=== PATIENT | female | born 1965 | race African-American/Black ===

== ENCOUNTER 2016-08-13 17:26 | Inpatient (IN) | payer MEDICAID ==
[~2016-08-13] VITALS: Ht 157.5 cm; Wt 98.0 kg
[~2016-08-13 17:26] MED LIST: AMLO10TA80 PO; ASPI-1160 PO; ATEN-42 PO; AZIT500T5 PO; BACL-141 PO; DIPH25CA83 PO; FURO-151 PO; GABA-529 PO; LISI40TA4 PO; METF500T4 PO; MONT10TA24 PO; NAPR-681 PO; POTA10CA42 PO
[2016-08-13] MEDS ORDERED: ASPIRIN 81MG TABLET PO STA (18:13)
[2016-08-13] MEDS ORDERED: NITROGLYCERIN 0.4MG TABLET SL SL PRN (18:15)
[2016-08-13 18:37] LABS: BASOPHILS % 1.2 % (0.0-2.0); EOSINOPHILS % 3.3 % (0.0-5.0); HEMATOCRIT. 37.1 % (36.0-48.0); HEMOGLOBIN. 12.3 g/dL (12.0-16.0); LYMPHOCYTES % 25.6 % (20.0-50.0); MEAN CORPUSCULAR HEMOGLOBIN 26.7 pg (28.0-32.0); MEAN CORPUSCULAR VOLUME 80.5 fL (81.0-99.0); MEAN PLATELET VOLUME 8.9 fl (7.4-10.4); MONOCYTES % 6.1 % (2.0-8.0); NEUTROPHILS % 63.8 % (40.0-76.0); PLATELET 166 x1000/uL (130-400); RED BLOOD CELL COUNT 4.61 mill/uL (4.2-5.4); RED CELL DISTRIBUTION WIDTH 15.3 % (11.6-14.6)
[2016-08-13 18:42] LABS: INR 1.1; PARTIAL THROMBOPLASTIN TIME 25.7 sec (24.0-34.0); PROTHROMBIN TIME 11.4 sec
[2016-08-13 18:51] LABS: CARBON DIOXIDE 33 mEq/L (21-32); CHLORIDE 107 mEq/L (98-107); TROPONIN I 0.03 ng/mL (0.00-0.04)
[2016-08-13] MEDS: KCL 20MEQ/100ML PREMIX 100 ML IV ONE ×2 (20:15→20:48)
[2016-08-13] MEDS ORDERED: POTASSIUM CHLORIDE 20MEQ TABLET SR PO ONE (21:00)
[2016-08-13 22:00] VITALS: BP 156/98
[2016-08-13] MEDS ORDERED: IPRATROPIUM/ALBUTEROL 0.5-3(2.5)MG/3ML NEB INH PRN (22:45)
[2016-08-13] MEDS ORDERED: CLONIDINE 0.1MG TABLET PO PRN (22:45)
[2016-08-13] MEDS ORDERED: DOCUSATE SODIUM 100MG CAPSULE PO PRN (22:45)
[2016-08-13] MEDS ORDERED: ACETAMINOPHEN 325MG TABLET PO PRN (22:45)
[2016-08-13] MEDS ORDERED: HYDROCODONE/ACETAMINOPHEN 5/325MG TABLET PO PRN (22:45)
[2016-08-13] MEDS ORDERED: ONDANSETRON HCL 4MG/2ML VIAL IV PRN (22:45)
[2016-08-13] MEDS ORDERED: ENOXAPARIN 40MG/0.4ML SYR SUBCUT SCH (22:45)
[2016-08-13] MEDS ORDERED: MAGNESIUM/ALUMINUM HYDROXIDE/SIMETHICONE 30ML UDC PO PRN (22:45)
[2016-08-13] MEDS ORDERED: MULT-1146 PO (23:15)
[2016-08-13] MEDS ORDERED: CHOL100026 PO (23:15)
[2016-08-13] MEDS ORDERED: DEXTROSE 50% WATER 50ML SYRINGE IV PRN (23:15)
[2016-08-14] VITALS: BP 135/77
[2016-08-14 00:37] LABS: CARBON DIOXIDE 31 mEq/L (21-32); CHLORIDE 105 mEq/L (98-107)
[2016-08-14 04:00] VITALS: BP 132/81
[2016-08-14 06:44] LABS: BASOPHILS % 1.3 % (0.0-2.0); EOSINOPHILS % 4.4 % (0.0-5.0); HEMATOCRIT. 38.5 % (36.0-48.0); HEMOGLOBIN. 12.9 g/dL (12.0-16.0); LYMPHOCYTES % 24.7 % (20.0-50.0); MEAN CORPUSCULAR HEMOGLOBIN 26.9 pg (28.0-32.0); MEAN CORPUSCULAR VOLUME 80.3 fL (81.0-99.0); MEAN PLATELET VOLUME 9.8 fl (7.4-10.4); MONOCYTES % 8.6 % (2.0-8.0); PLATELET 173 x1000/uL (130-400); RED BLOOD CELL COUNT 4.79 mill/uL (4.2-5.4); RED CELL DISTRIBUTION WIDTH 14.8 % (11.6-14.6)
[2016-08-14 07:04] LABS: CREATINE KINASE 364 IU/L (26-192); HDL CHOLESTEROL 47 mg/dL (40-59); LDL CHOLESTEROL 77 mg/dL (5-100)
[2016-08-14 07:10] LABS: CREATINE KINASE MB FRACTION 2.5 ng/mL (0.5-3.6); TROPONIN I < 0.02 ng/mL (0.00-0.04)
[2016-08-14 08:00] VITALS: BP 127/79
[2016-08-14] MEDS: BLOOD SUGAR DIAGNOSTIC STRIP TEST SCH ×4 (08:06→21:16)
[2016-08-14] MEDS ORDERED: MEDICATION NOT ON FORMULARY EA (Potassium Chloride 1 CAP) PO SCH (09:00)
[2016-08-14] MEDS ORDERED: FUROSEMIDE 40MG TABLET PO SCH (09:00)
[2016-08-14] MEDS ORDERED: MEDICATION NOT ON FORMULARY EA (Multivitamin (Multi Vitamin Daily) 1 EACH) PO SCH (09:00)
[2016-08-14] MEDS: ENOXAPARIN 30MG/0.3ML SYR SUBCUT SCH ×2 (09:28→21:16)
[2016-08-14] MEDS: POTASSIUM CHLORIDE 10MEQ TABLET SR PO SCH (09:29)
[2016-08-14] MEDS: LISINOPRIL 40MG TABLET PO SCH (09:29)
[2016-08-14] MEDS: AMLODIPINE 10MG TABLET PO SCH (09:29)
[2016-08-14] MEDS: GABAPENTIN 100MG CAPSULE PO SCH ×3 (09:30→18:29)
[2016-08-14] MEDS: ATENOLOL 25MG TABLET PO SCH (09:30)
[2016-08-14] MEDS: CHOLECALCIFEROL (D3) 1000 UNIT TABLET PO SCH (09:30)
[2016-08-14] MEDS: INSULIN LISPRO 100 UNITS/ML SUBCUT SCH ×4 (09:32→21:23)
[2016-08-14] MEDS: MULTIVITAMINS,THER W-MINERALS TABLET PO SCH (09:35)
[2016-08-14] MEDS: ASPIRIN 81MG TABLET PO SCH (09:36)
[2016-08-14 12:00] VITALS: BP 134/92
[2016-08-14] MEDS ORDERED: REGADENOSON 0.4 MG/5 ML IV ONE (13:00)
[2016-08-14] MEDS ORDERED: POTASSIUM CHLORIDE 20MEQ/PACKET PO NR (13:00)
[2016-08-14] MEDS: MONTELUKAST SODIUM 10MG TABLET PO SCH (13:38)
[2016-08-14 16:00] VITALS: BP 139/87
[2016-08-14] MEDS ORDERED: DIPHENHYDRAMINE 25MG CAPSULE PO SCH (17:00)
[2016-08-14 20:00] VITALS: BP 134/78
[2016-08-15] VITALS: BP 132/79
[2016-08-15 04:00] VITALS: BP 126/78
[2016-08-15 06:09] LABS: CARBON DIOXIDE 30 mEq/L (21-32); CHLORIDE 103 mEq/L (98-107); HDL CHOLESTEROL 51 mg/dL (40-59)
[2016-08-15 06:12] LABS: LDL CHOLESTEROL 84 mg/dL (5-100); TROPONIN I < 0.02 ng/mL (0.00-0.04)
[2016-08-15 06:59] LABS: BASOPHILS % 1.1 % (0.0-2.0); EOSINOPHILS % 4.8 % (0.0-5.0); HEMATOCRIT. 39.8 % (36.0-48.0); LYMPHOCYTES % 29.4 % (20.0-50.0); MEAN CORPUSCULAR HEMOGLOBIN 26.1 pg (28.0-32.0); MEAN CORPUSCULAR VOLUME 80.2 fL (81.0-99.0); MEAN PLATELET VOLUME 9.8 fl (7.4-10.4); MONOCYTES % 7.6 % (2.0-8.0); NEUTROPHILS % 57.1 % (40.0-76.0); PLATELET 175 x1000/uL (130-400); RED BLOOD CELL COUNT 4.96 mill/uL (4.2-5.4); RED CELL DISTRIBUTION WIDTH 15.1 % (11.6-14.6)
[2016-08-15] MEDS: BLOOD SUGAR DIAGNOSTIC STRIP TEST SCH (07:17)
[2016-08-15 08:00] VITALS: BP 160/100
[2016-08-15] MEDS ORDERED: REGADENOSON 0.4 MG/5 ML IV ONE (09:58)
[2016-08-15] MEDS: MONTELUKAST SODIUM 10MG TABLET PO SCH (11:35)
[2016-08-15] MEDS: LISINOPRIL 40MG TABLET PO SCH (11:35)
[2016-08-15] MEDS: ENOXAPARIN 30MG/0.3ML SYR SUBCUT SCH (11:35)
[2016-08-15] MEDS: POTASSIUM CHLORIDE 10MEQ TABLET SR PO SCH (11:36)
[2016-08-15] MEDS: AMLODIPINE 10MG TABLET PO SCH (11:36)
[2016-08-15] MEDS: ATENOLOL 25MG TABLET PO SCH (11:36)
[2016-08-15] MEDS: CHOLECALCIFEROL (D3) 1000 UNIT TABLET PO SCH (11:37)
[2016-08-15] MEDS: GABAPENTIN 100MG CAPSULE PO SCH (11:37)
[2016-08-15] MEDS: MULTIVITAMINS,THER W-MINERALS TABLET PO SCH (11:37)
[2016-08-15] MEDS: ASPIRIN 81MG TABLET PO SCH (11:37)
[2016-08-15] MEDS: INSULIN LISPRO 100 UNITS/ML SUBCUT SCH (11:39)
[2016-08-15 12:00] VITALS: BP 145/85
[2016-08-15 12:40] VITALS: BP 145/85
== END 2016-08-15 13:10 | disposition home or self-care (01) | DRG 203 ==
LOC: ER 17:39 → 7WST 20:41 → EDBEDREQ 20:42 → ENRESERV 21:02
PROVIDERS: ADMIT Internal Medicine; ATTEND Internal Medicine
DX: M94.0 Chondrocostal junction syndrome [Tietze] (principal); I50.43 Acute on chronic combined systolic (congestive) and diastolic (congestive) heart failure; E11.42 Type 2 diabetes mellitus with diabetic polyneuropathy; J44.9 Chronic obstructive pulmonary disease, unspecified; I11.0 Hypertensive heart disease with heart failure; E87.6 Hypokalemia; I44.0 Atrioventricular block, first degree; M19.90 Unspecified osteoarthritis, unspecified site; E66.9 Obesity, unspecified; Z68.39 Body mass index [BMI] 39.0-39.9, adult; Z82.49 Family history of ischemic heart disease and other diseases of the circulatory system; Z79.82 Long term (current) use of aspirin; Z88.0 Allergy status to penicillin; Z79.2 Long term (current) use of antibiotics; Z79.84 Long term (current) use of oral hypoglycemic drugs; Z87.891 Personal history of nicotine dependence
CPT/HCPCS: 36415; 71010; 78452; 80048; 80053; 80061; 82550; 82553; 82962; 83735; 83880; 84443; 84484; 85025; 85379; 85610; 85730; 93005; 93017; 93970; 99285; A9500; J1650; J1815; J2785; J3480; Q0163

== ENCOUNTER 2016-11-04 08:12 | Inpatient (IN) | payer MEDICAID ==
[~2016-11-04] VITALS: Ht 157.5 cm; Wt 113.4 kg
[~2016-11-04 08:12] MED LIST changes: +CHOL100044 PO; -METF500T4 PO; +MULT-1146 PO; -NAPR-681 PO
[2016-11-04] MEDS ORDERED: NITROGLYCERIN OINT 1GM/INCH UDPKT TD STA (08:26)
[2016-11-04] MEDS ORDERED: IPRATROPIUM BROMIDE (0.02%) 0.5MG/2.5ML NEB HHN STA (08:26)
[2016-11-04] MEDS ORDERED: ALBUTEROL (0.083%) 2.5MG/3ML NEB HHN STA (08:26)
[2016-11-04] MEDS ORDERED: MAGNESIUM 2 G PREMIX 50 ML IV STA (08:26)
[2016-11-04] MEDS ORDERED: FUROSEMIDE 40MG/4ML VIAL IV STA (08:26)
[2016-11-04] MEDS ORDERED: METHYLPREDNISOLONE SOD SUCC 125 MG/2 ML VIAL IV STA (08:26)
[2016-11-04 09:05] LABS: HEMATOCRIT. 36.7 % (36.0-48.0); HEMOGLOBIN. 12.1 g/dL (12.0-16.0); MEAN CORPUSCULAR HEMOGLOBIN 26.8 pg (28.0-32.0); MEAN CORPUSCULAR VOLUME 81.1 fL (81.0-99.0); MEAN PLATELET VOLUME 9.2 fl (7.4-10.4); PLATELET 157 x1000/uL (130-400); RED BLOOD CELL COUNT 4.53 mill/uL (4.2-5.4); RED CELL DISTRIBUTION WIDTH 16.3 % (11.6-14.6)
[2016-11-04 09:12] LABS: HCG SCREEN NEGATIVE; PARTIAL THROMBOPLASTIN TIME 22.6 sec (23.4-31.0); PROTHROMBIN TIME 10.7 sec (9.4-11.6)
[2016-11-04 09:23] LABS: CARBON DIOXIDE 27 mEq/L (21-32); CHLORIDE 107 mEq/L (98-107); TROPONIN I 0.04 ng/mL (0.00-0.04)
[2016-11-04 09:27] LABS: PLATELET ESTIMATE NORMAL
[2016-11-04] MEDS ORDERED: LEVOFLOXACIN 500MG PREMIX 100 ML IV ONE (09:45)
[2016-11-04 10:30] VITALS: BP 172/88
[2016-11-04] MEDS ORDERED: IPRATROPIUM/ALBUTEROL 0.5-3(2.5)MG/3ML NEB HHN PRN (11:00)
[2016-11-04] MEDS ORDERED: POTASSIUM CHLORIDE 20MEQ TABLET SR PO NR (11:15)
[2016-11-04] MEDS ORDERED: CLONIDINE 0.2MG TABLET PO PRN (11:45)
[2016-11-04] MEDS ORDERED: AMLODIPINE 2.5MG TABLET PO SCH (11:45)
[2016-11-04 12:18] VITALS: BP 172/88
[2016-11-04] MEDS: METHYLPREDNISOLONE SOD SUCC 40 MG/ML VIAL IV SCH ×2 (12:22→17:33)
[2016-11-04] MEDS: ENOXAPARIN 30MG/0.3ML SYR SUBCUT SCH ×2 (12:33→21:27)
[2016-11-04] MEDS ORDERED: ACETAMINOPHEN 650MG/20.3ML UDC PO PRN (14:15)
[2016-11-04] MEDS: IPRATROPIUM/ALBUTEROL 0.5-3(2.5)MG/3ML NEB HHN SCH ×2 (14:21→20:02)
[2016-11-04] MEDS: ACETAMINOPHEN 325MG TABLET PO PRN (14:42)
[2016-11-04] MEDS: GUAIFENESIN 200MG/10ML SUGAR FREE UDC PO PRN ×2 (14:43→21:41)
[2016-11-04] MEDS: CLONIDINE 0.2MG TABLET PO PRN (14:50)
[2016-11-04 16:00] VITALS: BP 142/70
[2016-11-04] MEDS ORDERED: DEXTROSE 50% WATER 50ML SYRINGE IV PRN (16:15)
[2016-11-04 17:12] LABS: *AMPHETAMINES SCREEN URINE NEGATIVE (NEGATIVE); *BARBITURATES SCREEN URINE NEGATIVE (NEGATIVE); *BENZODIAZEPINES SCREEN URINE NEGATIVE (NEGATIVE); *COCAINE SCREEN URINE NEGATIVE (NEGATIVE); CANNABINOID URINE SCREEN NEGATIVE (NEGATIVE); METHADONE URINE SCREEN NEGATIVE (NEGATIVE); OPIATES URINE SCREEN NEGATIVE (NEGATIVE); PHENCYCLIDINE URINE SCREEN NEGATIVE (NEGATIVE)
[2016-11-04] MEDS: GABAPENTIN 100MG CAPSULE PO SCH (17:32)
[2016-11-04] MEDS: DIPHENHYDRAMINE 25MG CAPSULE PO SCH (17:32)
[2016-11-04] MEDS: BACLOFEN 10MG TABLET PO SCH (17:33)
[2016-11-04] MEDS: INSULIN LISPRO 100 UNITS/ML SUBCUT SCH ×2 (17:42→21:37)
[2016-11-04] MEDS: BLOOD SUGAR DIAGNOSTIC STRIP TEST SCH ×2 (17:42→20:59)
[2016-11-04 19:29] LABS: CREATINE KINASE MB FRACTION 3.5 ng/mL (0.5-3.6); TROPONIN I 0.07 ng/mL (0.00-0.04)
[2016-11-04 20:00] VITALS: BP 155/72
[2016-11-04] MEDS: FUROSEMIDE 40MG/4ML VIAL IVP SCH (21:26)
[2016-11-04] MEDS: AMLODIPINE 5MG TABLET PO SCH (21:27)
[2016-11-05] VITALS (7 sets, daily range): BP systolic 146–173; BP diastolic 76–92
[2016-11-05] MEDS: CLONIDINE 0.2MG TABLET PO PRN ×2 (01:20→06:10)
[2016-11-05] MEDS: METHYLPREDNISOLONE SOD SUCC 40 MG/ML VIAL IV SCH ×3 (01:24→22:00)
[2016-11-05] MEDS: IPRATROPIUM/ALBUTEROL 0.5-3(2.5)MG/3ML NEB HHN SCH ×4 (02:21→20:34)
[2016-11-05 03:24] LABS: HEMATOCRIT. 37.3 % (36.0-48.0); MEAN CORPUSCULAR HEMOGLOBIN 26.4 pg (28.0-32.0); MEAN CORPUSCULAR VOLUME 81.9 fL (81.0-99.0); PLATELET 184 x1000/uL (130-400); RED BLOOD CELL COUNT 4.55 mill/uL (4.2-5.4); RED CELL DISTRIBUTION WIDTH 15.6 % (11.6-14.6)
[2016-11-05 03:32] LABS: CREATINE KINASE MB FRACTION 4.9 ng/mL (0.5-3.6); TROPONIN I 0.06 ng/mL (0.00-0.04)
[2016-11-05 03:37] LABS: CARBON DIOXIDE 29 mEq/L (21-32); CHLORIDE 99 mEq/L (98-107); HDL CHOLESTEROL 76 mg/dL (40-59); LDL CHOLESTEROL 102 mg/dL (5-100)
[2016-11-05] MEDS: BLOOD SUGAR DIAGNOSTIC STRIP TEST SCH ×4 (06:09→21:00)
[2016-11-05] MEDS: GUAIFENESIN 200MG/10ML SUGAR FREE UDC PO PRN (06:28)
[2016-11-05] MEDS ORDERED: POTASSIUM CHLORIDE 10MEQ TABLET SR PO SCH (09:00)
[2016-11-05] MEDS: LISINOPRIL 40MG TABLET PO SCH (09:51)
[2016-11-05] MEDS: BACLOFEN 10MG TABLET PO SCH ×2 (09:51→18:22)
[2016-11-05] MEDS: ENOXAPARIN 30MG/0.3ML SYR SUBCUT SCH ×2 (09:51→21:59)
[2016-11-05] MEDS: GABAPENTIN 100MG CAPSULE PO SCH ×3 (09:51→18:22)
[2016-11-05] MEDS: ASPIRIN 81MG TABLET PO SCH (09:51)
[2016-11-05] MEDS: CHOLECALCIFEROL (D3) 1000 UNIT TABLET PO SCH (09:52)
[2016-11-05] MEDS: ATENOLOL 25MG TABLET PO SCH (09:52)
[2016-11-05] MEDS: FUROSEMIDE 40MG/4ML VIAL IVP SCH ×2 (09:52→22:00)
[2016-11-05] MEDS: MULTIVITAMINS,THER W-MINERALS TABLET PO SCH (09:52)
[2016-11-05] MEDS: AMLODIPINE 5MG TABLET PO SCH ×2 (09:52→22:00)
[2016-11-05] MEDS: INSULIN LISPRO 100 UNITS/ML SUBCUT SCH ×4 (09:54→22:06)
[2016-11-05] MEDS ORDERED: POTASSIUM CHLORIDE 20MEQ TABLET SR PO NR (10:00)
[2016-11-05 11:51] LABS: T4 FREE 1.22 ng/dL (0.76-1.46)
[2016-11-05] MEDS: GUAIFENESIN/CODEINE 100-10MG/5ML UDC PO PRN ×2 (12:44→22:00)
[2016-11-05] MEDS: HYDRALAZINE HCL 50MG TABLET PO SCH ×2 (12:49→21:59)
[2016-11-05 14:19] LABS: PLATELET ESTIMATE NORMAL
[2016-11-05] MEDS: POTASSIUM CHLORIDE 20MEQ TABLET SR PO SCH (18:21)
[2016-11-05] MEDS: MONTELUKAST SODIUM 10MG TABLET PO SCH (18:22)
[2016-11-05] MEDS: DIPHENHYDRAMINE 25MG CAPSULE PO SCH (18:22)
[2016-11-05] MEDS: ACETAMINOPHEN 325MG TABLET PO PRN (22:00)
[2016-11-06] VITALS: BP 153/89
[2016-11-06] MEDS: IPRATROPIUM/ALBUTEROL 0.5-3(2.5)MG/3ML NEB HHN SCH ×3 (02:01→20:13)
[2016-11-06] MEDS: HYDRALAZINE HCL 50MG TABLET PO SCH ×3 (06:00→22:15)
[2016-11-06] MEDS: BLOOD SUGAR DIAGNOSTIC STRIP TEST SCH ×4 (07:20→21:00)
[2016-11-06 07:45] LABS: CARBON DIOXIDE 28 mEq/L (21-32); TROPONIN I 0.03 ng/mL (0.00-0.04)
[2016-11-06 08:00] VITALS: BP 142/75
[2016-11-06] MEDS: FUROSEMIDE 40MG/4ML VIAL IVP SCH ×2 (08:31→22:14)
[2016-11-06] MEDS: MULTIVITAMINS,THER W-MINERALS TABLET PO SCH (08:31)
[2016-11-06] MEDS: CHOLECALCIFEROL (D3) 1000 UNIT TABLET PO SCH (08:31)
[2016-11-06] MEDS: GABAPENTIN 100MG CAPSULE PO SCH ×3 (08:31→17:19)
[2016-11-06] MEDS: METHYLPREDNISOLONE SOD SUCC 40 MG/ML VIAL IV SCH (08:31)
[2016-11-06] MEDS: POTASSIUM CHLORIDE 20MEQ TABLET SR PO SCH ×2 (08:32→17:19)
[2016-11-06] MEDS: LISINOPRIL 40MG TABLET PO SCH (08:32)
[2016-11-06] MEDS: ATENOLOL 25MG TABLET PO SCH (08:33)
[2016-11-06] MEDS: ASPIRIN 81MG TABLET PO SCH (08:33)
[2016-11-06] MEDS: AMLODIPINE 5MG TABLET PO SCH ×2 (08:33→22:14)
[2016-11-06] MEDS: BACLOFEN 10MG TABLET PO SCH ×2 (08:34→17:19)
[2016-11-06] MEDS: ENOXAPARIN 30MG/0.3ML SYR SUBCUT SCH ×2 (08:35→22:14)
[2016-11-06] MEDS: INSULIN LISPRO 100 UNITS/ML SUBCUT SCH ×4 (08:38→22:18)
[2016-11-06 08:41] LABS: CHLORIDE 97 mEq/L (98-107)
[2016-11-06] MEDS: GUAIFENESIN/CODEINE 100-10MG/5ML UDC PO PRN ×2 (09:00→22:15)
[2016-11-06 12:00] VITALS: BP 140/75
[2016-11-06] MEDS ORDERED: REGADENOSON 0.4 MG/5 ML IV NR (15:15)
[2016-11-06 16:00] VITALS: BP 136/74
[2016-11-06] MEDS: DIPHENHYDRAMINE 25MG CAPSULE PO SCH (17:00)
[2016-11-06] MEDS: MONTELUKAST SODIUM 10MG TABLET PO SCH (17:19)
[2016-11-06 20:00] VITALS: BP 134/68
[2016-11-07] VITALS: BP 126/75
[2016-11-07] MEDS: IPRATROPIUM/ALBUTEROL 0.5-3(2.5)MG/3ML NEB HHN SCH ×3 (02:01→15:21)
[2016-11-07 04:00] VITALS: BP 147/78
[2016-11-07] MEDS: HYDRALAZINE HCL 50MG TABLET PO SCH (06:00)
[2016-11-07 06:52] LABS: BASOPHILS % 0.5 % (0.0-2.0); EOSINOPHILS % 0.4 % (0.0-5.0); HEMATOCRIT. 38.9 % (36.0-48.0); HEMOGLOBIN. 12.7 g/dL (12.0-16.0); LYMPHOCYTES % 12.7 % (20.0-50.0); MEAN CORPUSCULAR HEMOGLOBIN 26.5 pg (28.0-32.0); MEAN PLATELET VOLUME 10.7 fl (7.4-10.4); MONOCYTES % 5.3 % (2.0-8.0); NEUTROPHILS % 81.1 % (40.0-76.0); PLATELET 195 x1000/uL (130-400)
[2016-11-07] MEDS: BLOOD SUGAR DIAGNOSTIC STRIP TEST SCH (07:44)
[2016-11-07 08:00] VITALS: BP 124/82
[2016-11-07 08:11] LABS: CARBON DIOXIDE 30 mEq/L (21-32); CHLORIDE 98 mEq/L (98-107)
[2016-11-07] MEDS ORDERED: PREDNISONE 20MG TABLET PO SCH (09:00)
[2016-11-07] MEDS ORDERED: LORAZEPAM 0.5MG TABLET PO NR (10:00)
[2016-11-07 12:00] VITALS: BP 156/83
[2016-11-07] MEDS ORDERED: CLONIDINE 0.1MG TABLET PO PRN (12:20)
[2016-11-07 16:00] VITALS: BP 170/90
[2016-11-07 16:40] VITALS: BP 156/85
== END 2016-11-07 16:44 | disposition home or self-care (01) | DRG 140 ==
LOC: ER 09:00 → 6WST 09:34 → EDBEDREQ 09:39 → ENRESERV 09:43
PROVIDERS: ADMIT Internal Medicine; ATTEND Internal Medicine
DX: J44.1 Chronic obstructive pulmonary disease with (acute) exacerbation (principal); J96.00 Acute respiratory failure, unspecified whether with hypoxia or hypercapnia; I50.33 Acute on chronic diastolic (congestive) heart failure; I27.2 Other secondary pulmonary hypertension; E44.0 Moderate protein-calorie malnutrition; I24.9 Acute ischemic heart disease, unspecified; E11.42 Type 2 diabetes mellitus with diabetic polyneuropathy; J45.901 Unspecified asthma with (acute) exacerbation; E11.9 Type 2 diabetes mellitus without complications; D72.829 Elevated white blood cell count, unspecified; I16.9 Hypertensive crisis, unspecified; E78.00 Pure hypercholesterolemia, unspecified; E87.6 Hypokalemia; F41.9 Anxiety disorder, unspecified; I11.0 Hypertensive heart disease with heart failure; E66.01 Morbid (severe) obesity due to excess calories; Z87.891 Personal history of nicotine dependence; Z88.0 Allergy status to penicillin; Z79.82 Long term (current) use of aspirin; Z79.899 Other long term (current) drug therapy; Z68.42 Body mass index [BMI] 45.0-49.9, adult
CPT/HCPCS: 36415; 71010; 78452; 78582; 80053; 80061; 80305; 82550; 82553; 82962; 83690; 83735; 83880; 84439; 84443; 84481; 84484; 84703; 85025; 85379; 85610; 85730; 93005; 93306; 93970; 94640; 94644; 96365; 96375; 97162; 97165; 99291; A9500; A9558; C1893; J1650; J1815; J1940; J1956; J2785; J2920; J2930; J3475; J7611; J7620; Q0163

== ENCOUNTER 2017-01-02 03:16 | Emergency (ER) | payer MEDICAID ==
[~2017-01-02] VITALS: Ht 165.1 cm; Wt 100.0 kg
[2017-01-02] MEDS ORDERED: ASPIRIN 81MG TABLET PO ONE (03:45)
[2017-01-02] MEDS ORDERED: NITROGLYCERIN 0.4MG TABLET SL SL PRN (03:45)
[2017-01-02 04:00] LABS: BASOPHILS % 1.6 % (0.0-2.0); EOSINOPHILS % 7.8 % (0.0-5.0); HEMATOCRIT. 40.1 % (36.0-48.0); HEMOGLOBIN. 13.5 g/dL (12.0-16.0); LYMPHOCYTES % 26.8 % (20.0-50.0); MEAN CORPUSCULAR HEMOGLOBIN 26.9 pg (28.0-32.0); MEAN CORPUSCULAR VOLUME 80.1 fL (81.0-99.0); MEAN PLATELET VOLUME 8.7 fl (7.4-10.4); MONOCYTES % 9.1 % (2.0-8.0); NEUTROPHILS % 54.7 % (40.0-76.0); PLATELET 171 x1000/uL (130-400)
[2017-01-02 04:04] LABS: PROTHROMBIN TIME 10.4 sec (9.4-11.6)
[2017-01-02 04:14] LABS: CARBON DIOXIDE 30 mEq/L (21-32); CHLORIDE 106 mEq/L (98-107); TROPONIN I 0.03 ng/mL (0.00-0.04)
[2017-01-02 07:25] VITALS: BP 144/69
== END 2017-01-02 08:20 | disposition left against medical advice (07) ==
LOC: ER 03:16
DX: R07.9 Chest pain, unspecified (principal); I11.0 Hypertensive heart disease with heart failure; I50.9 Heart failure, unspecified; E11.9 Type 2 diabetes mellitus without complications; Z79.82 Long term (current) use of aspirin; Z88.0 Allergy status to penicillin
CPT/HCPCS: 36415; 71010; 80053; 81025; 83880; 84484; 85025; 85610; 93005; 99285

== ENCOUNTER 2017-02-08 00:31 | Emergency (ER) | payer MEDICAID ==
[~2017-02-08] VITALS: Ht 152.4 cm; Wt 90.0 kg
[2017-02-08] MEDS ORDERED: IPRATROPIUM BROMIDE (0.02%) 0.5MG/2.5ML NEB HHN STA (01:25)
[2017-02-08] MEDS ORDERED: PREDNISONE 20MG TABLET PO STA (01:25)
[2017-02-08] MEDS ORDERED: ALBUTEROL (0.083%) 2.5MG/3ML NEB HHN STA (01:25)
[2017-02-08] MEDS ORDERED: ACETAMINOPHEN 500MG TABLET PO ONE (01:30)
[2017-02-08 02:00] VITALS: BP 159/89
== END 2017-02-08 04:00 | disposition home or self-care (01) ==
LOC: ER 00:35
DX: J18.9 Pneumonia, unspecified organism (principal); J45.909 Unspecified asthma, uncomplicated; Z76.5 Malingerer [conscious simulation]; I50.9 Heart failure, unspecified; I11.0 Hypertensive heart disease with heart failure; E11.9 Type 2 diabetes mellitus without complications; Z79.82 Long term (current) use of aspirin; Z88.0 Allergy status to penicillin
CPT/HCPCS: 71010; 94640; 99283; J7512; J7611; Z7610

== ENCOUNTER 2017-03-09 11:48 | Emergency (ER) | payer MEDICAID ==
[~2017-03-09] VITALS: Ht 157.5 cm; Wt 113.0 kg
[2017-03-09 11:59] VITALS: BP 192/111
== END 2017-03-09 22:09 | disposition left against medical advice (07) ==
LOC: ER 13:05
DX: J45.909 Unspecified asthma, uncomplicated (principal); Z53.21 Procedure and treatment not carried out due to patient leaving prior to being seen by health care provider

== ENCOUNTER 2018-08-17 12:55 | Emergency (ER) | payer MEDICAID ==
[~2018-08-17] VITALS: Ht 170.2 cm; Wt 109.0 kg
[~2018-08-17 12:55] MED LIST changes: -AZIT500T5 PO; +GUAI5SYR3 GT
[2018-08-17 14:31] LABS: CLARITY URINE CLEAR (CLEAR); COLOR URINE YELLOW (YELLOW); KETONES URINE NEGATIVE (NEGATIVE); LEUKOCYTE ESTERASE URINE NEGATIVE (NEGATIVE); NITRITE URINE NEGATIVE (NEGATIVE); OCCULT BLOOD URINE NEGATIVE (NEGATIVE); PROTEIN URINE 2+ (NEGATIVE); SPECIFIC GRAVITY URINE 1.013 (1.005-1.030); UROBILINOGEN URINE 0.2 E.U./dL (0.2-1.0)
[2018-08-17] MEDS ORDERED: KETOROLAC 15MG/ML VIAL IV ONE (14:45)
[2018-08-17 15:17] LABS: CHLORIDE 108 mEq/L (98-107)
[2018-08-17 16:53] LABS: HEMATOCRIT. 38.9 % (36.0-48.0); MEAN CORPUSCULAR HEMOGLOBIN 27.7 pg (28.0-32.0); MEAN CORPUSCULAR VOLUME 82.8 fL (81.0-99.0); MEAN PLATELET VOLUME 9.1 fl (7.4-10.4); PLATELET 174 x1000/uL (130-400); RED BLOOD CELL COUNT 4.69 mill/uL (4.2-5.4); RED CELL DISTRIBUTION WIDTH 16.1 % (11.6-14.6)
[2018-08-17 18:00] LABS: PLATELET ESTIMATE NORMAL
[2018-08-17] MEDS ORDERED: POTASSIUM CHLORIDE 20MEQ TABLET SR PO SCH (18:00)
[2018-08-17 18:22] VITALS: BP 147/69
== END 2018-08-17 18:22 | disposition home or self-care (01) ==
LOC: ER 12:55
DX: J18.9 Pneumonia, unspecified organism (principal); I11.0 Hypertensive heart disease with heart failure; I50.9 Heart failure, unspecified; E11.9 Type 2 diabetes mellitus without complications; J44.9 Chronic obstructive pulmonary disease, unspecified; Z88.0 Allergy status to penicillin; Z79.899 Other long term (current) drug therapy
CPT/HCPCS: 36415; 71045; 80053; 81003; 81025; 83880; 84484; 85025; 93005; 96374; 99284; J1885

== ENCOUNTER 2019-02-13 07:29 | Emergency (ER) | payer MEDICAID ==
[~2019-02-13] VITALS: Ht 157.5 cm; Wt 91.0 kg
[2019-02-13] MEDS ORDERED: IPRATROPIUM BROMIDE (0.02%) 0.5MG/2.5ML NEB HHN STA (07:44)
[2019-02-13] MEDS ORDERED: ALBUTEROL (0.083%) 2.5MG/3ML NEB HHN STA (07:44)
[2019-02-13 08:50] LABS: BASOPHILS % 1.3 % (0.0-2.0); EOSINOPHILS % 4.8 % (0.0-5.0); HEMATOCRIT. 38.8 % (36.0-48.0); LYMPHOCYTES % 17.3 % (20.0-50.0); MEAN CORPUSCULAR HEMOGLOBIN 27.2 pg (28.0-32.0); MEAN CORPUSCULAR VOLUME 81.5 fL (81.0-99.0); MONOCYTES % 8.1 % (2.0-8.0); NEUTROPHILS % 68.5 % (40.0-76.0); PLATELET 161 x1000/uL (130-400); RED BLOOD CELL COUNT 4.76 mill/uL (4.2-5.4); RED CELL DISTRIBUTION WIDTH 15.3 % (11.6-14.6)
[2019-02-13 08:54] LABS: CHLORIDE 104 mEq/L (98-107)
[2019-02-13 09:05] LABS: *AMPHETAMINES SCREEN URINE NEGATIVE (NEGATIVE); *BARBITURATES SCREEN URINE NEGATIVE (NEGATIVE)
[2019-02-13 09:06] LABS: *BENZODIAZEPINES SCREEN URINE NEGATIVE (NEGATIVE); *COCAINE SCREEN URINE NEGATIVE (NEGATIVE); METHADONE URINE SCREEN NEGATIVE (NEGATIVE); OPIATES URINE SCREEN NEGATIVE (NEGATIVE); PHENCYCLIDINE URINE SCREEN NEGATIVE (NEGATIVE)
[2019-02-13] MEDS ORDERED: POTASSIUM CHLORIDE 20MEQ TABLET SR PO ONE (09:15)
[2019-02-13] MEDS ORDERED: KCL 10MEQ/50ML PREMIX 50 ML IV ONE (09:15)
[2019-02-13 09:17] LABS: CANNABINOID URINE SCREEN NEGATIVE (NEGATIVE)
[2019-02-13 11:15] VITALS: BP 175/95
== END 2019-02-13 11:48 | disposition left against medical advice (07) ==
LOC: ER 07:29
DX: I11.0 Hypertensive heart disease with heart failure (principal); I50.9 Heart failure, unspecified; J45.909 Unspecified asthma, uncomplicated; E11.9 Type 2 diabetes mellitus without complications; Z79.82 Long term (current) use of aspirin; Z79.899 Other long term (current) drug therapy; Z88.0 Allergy status to penicillin; E87.6 Hypokalemia
CPT/HCPCS: 36415; 71045; 80053; 80305; 83880; 84484; 85025; 93005; 94640; 99284; J3480; J7611; Z7610

== ENCOUNTER 2020-06-20 10:31 | Emergency (ER) | payer MEDICAID ==
[~2020-06-20] VITALS: Ht 157.5 cm; Wt 102.0 kg
[~2020-06-20 10:31] MED LIST changes: +LISI40TA13 PO; -LISI40TA4 PO; -MONT10TA24 PO; +MONT10TA32 PO
[2020-06-20 10:40] VITALS: BP 207/94
[2020-06-20 12:38] LABS: CLARITY URINE CLEAR (CLEAR); COLOR URINE YELLOW (YELLOW); KETONES URINE NEGATIVE (NEGATIVE); LEUKOCYTE ESTERASE URINE NEGATIVE (NEGATIVE); NITRITE URINE NEGATIVE (NEGATIVE); OCCULT BLOOD URINE NEGATIVE (NEGATIVE); PH URINE 6.5 (4.5-8.0); PROTEIN URINE NEGATIVE (NEGATIVE); SPECIFIC GRAVITY URINE 1.026 (1.005-1.030); UROBILINOGEN URINE 0.2 E.U./dL (0.2-1.0)
== END 2020-06-20 13:10 | disposition home or self-care (01) ==
LOC: ER 10:31
DX: N89.8 Other specified noninflammatory disorders of vagina (principal); I10 Essential (primary) hypertension; E11.9 Type 2 diabetes mellitus without complications; J45.909 Unspecified asthma, uncomplicated; Z79.82 Long term (current) use of aspirin; Z79.899 Other long term (current) drug therapy
CPT/HCPCS: 81003; 87210; 99283

== ENCOUNTER 2020-10-22 06:09 | Emergency (ER) | payer MEDICAID ==
[~2020-10-22] VITALS: Ht 157.5 cm; Wt 109.0 kg
[2020-10-22] MEDS ORDERED: IBUP-2028 MT (09:48)
[2020-10-22] MEDS ORDERED: CLIN300C12 MT (09:52)
[2020-10-22] MEDS ORDERED: IBUPROFEN 400MG TABLET PO ONE (10:00)
[2020-10-22 10:25] VITALS: BP 142/73
== END 2020-10-22 10:28 | disposition home or self-care (01) ==
LOC: ER 08:56
DX: L03.213 Periorbital cellulitis (principal); H00.012 Hordeolum externum right lower eyelid; J45.909 Unspecified asthma, uncomplicated; I11.0 Hypertensive heart disease with heart failure; I50.9 Heart failure, unspecified; E11.9 Type 2 diabetes mellitus without complications; Z79.899 Other long term (current) drug therapy; Z79.82 Long term (current) use of aspirin; Z79.51 Long term (current) use of inhaled steroids; Z88.0 Allergy status to penicillin
CPT/HCPCS: 99283

== ENCOUNTER 2020-11-06 14:05 | Emergency (ER) | payer MEDICAID ==
[~2020-11-06] VITALS: Ht 157.5 cm; Wt 87.0 kg
[~2020-11-06 14:05] MED LIST changes: +CLIN300C12 MT; +IBUP-2028 MT
[2020-11-06] MEDS ORDERED: ATENOLOL 25MG TABLET PO ONE (16:30)
[2020-11-06] MEDS ORDERED: AMLODIPINE 10MG TABLET PO ONE (16:30)
[2020-11-06 17:30] LABS: BASOPHILS % 0.9 % (0.0-2.0); EOSINOPHILS % 1.5 % (0.0-5.0); HEMATOCRIT. 40.4 % (36.0-48.0); HEMOGLOBIN. 13.2 g/dL (12.0-16.0); LYMPHOCYTES % 8.4 % (20.0-50.0); MEAN CORPUSCULAR HEMOGLOBIN 27.1 pg (28.0-32.0); MEAN CORPUSCULAR VOLUME 82.8 fL (81.0-99.0); MEAN PLATELET VOLUME 9.2 fl (7.4-10.4); MONOCYTES % 4.4 % (2.0-8.0); NEUTROPHILS % 84.8 % (40.0-76.0); PLATELET 189 x1000/uL (130-400); RED BLOOD CELL COUNT 4.88 mill/uL (4.2-5.4); RED CELL DISTRIBUTION WIDTH 14.8 % (11.6-14.6)
[2020-11-06 17:38] LABS: CHLORIDE 102 mEq/L (98-107)
[2020-11-06] MEDS ORDERED: INSULIN REGULAR (HUMULIN R) 300UNITS/3ML VIAL IV STA (18:12)
[2020-11-06] MEDS ORDERED: FUROSEMIDE 40MG/4ML VIAL IVP ONE (18:15)
[2020-11-06] MEDS ORDERED: FURO-152 MT (20:48)
[2020-11-06] MEDS ORDERED: ATEN-42 MT (20:48)
[2020-11-06] MEDS ORDERED: AMLO10TA80 MT (20:48)
[2020-11-06 21:01] VITALS: BP 158/80
== END 2020-11-06 21:07 | disposition home or self-care (01) ==
LOC: ER 14:31
DX: I11.0 Hypertensive heart disease with heart failure (principal); I50.9 Heart failure, unspecified; E11.65 Type 2 diabetes mellitus with hyperglycemia; J45.909 Unspecified asthma, uncomplicated; I10 Essential (primary) hypertension; Z79.899 Other long term (current) drug therapy; Z88.0 Allergy status to penicillin
CPT/HCPCS: 36415; 71045; 80053; 83880; 84484; 85025; 93005; 96374; 96375; 99285; J1815; J1940

== ENCOUNTER 2021-01-04 14:56 | Emergency (ER) | payer MEDICAID, OTHER ==
[~2021-01-04] VITALS: Ht 157.5 cm; Wt 87.0 kg
[~2021-01-04 14:56] MED LIST changes: +AMLO10TA80 MT; +ATEN-42 MT; +FURO-152 MT
[2021-01-04 15:08] VITALS: BP 193/105
== END 2021-01-04 21:12 | disposition left against medical advice (07) ==
LOC: ER 14:56
DX: Z53.21 Procedure and treatment not carried out due to patient leaving prior to being seen by health care provider (principal); R06.02 Shortness of breath; M79.605 Pain in left leg; M79.89 Other specified soft tissue disorders
CPT/HCPCS: 93005

== ENCOUNTER 2021-02-09 08:26 | Emergency (ER) | payer OTHER, MEDICAID ==
[~2021-02-09] VITALS: Ht 157.5 cm; Wt 87.0 kg
[2021-02-09] MEDS ORDERED: MORPHINE SULFATE 4 MG/ML CPJ (NOT FOR IM USE) IV STA (09:09)
[2021-02-09] MEDS: ALBUTEROL (0.083%) 2.5MG/3ML NEB HHN SCH ×3 (09:35→10:37)
[2021-02-09 10:41] LABS: BASOPHILS % 1.4 % (0.0-2.0); EOSINOPHILS % 4.8 % (0.0-5.0); HEMATOCRIT. 38.9 % (36.0-48.0); HEMOGLOBIN. 12.7 g/dL (12.0-16.0); LYMPHOCYTES % 12.8 % (20.0-50.0); MEAN CORPUSCULAR HEMOGLOBIN 27.2 pg (28.0-32.0); MEAN CORPUSCULAR VOLUME 83.2 fL (81.0-99.0); MEAN PLATELET VOLUME 9.5 fl (7.4-10.4); MONOCYTES % 9.2 % (2.0-8.0); NEUTROPHILS % 71.8 % (40.0-76.0); PLATELET 121 x1000/uL (130-400); RED BLOOD CELL COUNT 4.67 mill/uL (4.2-5.4); RED CELL DISTRIBUTION WIDTH 15.1 % (11.6-14.6)
[2021-02-09 10:45] LABS: CHLORIDE 104 mEq/L (98-107)
[2021-02-09] MEDS ORDERED: ACET-2708 MT (11:38)
[2021-02-09 11:50] VITALS: BP 168/85
[2021-02-10] MEDS ORDERED: ALBU6.7H9 INH (07:04)
[2021-02-10] MEDS ORDERED: METF-414 MT (07:04)
== END 2021-02-09 11:55 | disposition home or self-care (01) ==
LOC: ER 08:26
DX: B34.9 Viral infection, unspecified (principal); I11.0 Hypertensive heart disease with heart failure; E78.00 Pure hypercholesterolemia, unspecified; E11.9 Type 2 diabetes mellitus without complications; I10 Essential (primary) hypertension; J45.909 Unspecified asthma, uncomplicated; E66.01 Morbid (severe) obesity due to excess calories; Z68.35 Body mass index [BMI] 35.0-35.9, adult; Z79.84 Long term (current) use of oral hypoglycemic drugs; Z88.0 Allergy status to penicillin; Z79.82 Long term (current) use of aspirin
CPT/HCPCS: 36415; 71045; 80053; 82962; 83880; 84484; 85025; 93005; 94640; 94660; 96374; 99285; J2270; Z7610

== ENCOUNTER 2021-02-09 15:26 | Inpatient (IN) | payer MEDICAID, OTHER ==
[~2021-02-09] VITALS: Ht 157.5 cm; Wt 99.3 kg
[~2021-02-09 15:26] MED LIST changes: +ACET-2708 MT
[2021-02-09] MEDS ORDERED: NITROGLYCERIN OINT 1GM/INCH UDPKT TD ONE (16:15)
[2021-02-09] MEDS ORDERED: METHYLPREDNISOLONE SOD SUCC 125 MG/2 ML VIAL IV STA (16:15)
[2021-02-09] MEDS ORDERED: ALBUTEROL (0.083%) 2.5MG/3ML NEB HHN STA (16:15)
[2021-02-09] MEDS ORDERED: IPRATROPIUM BROMIDE (0.02%) 0.5MG/2.5ML NEB HHN STA (16:15)
[2021-02-09] MEDS ORDERED: FUROSEMIDE 40MG/4ML VIAL IVP ONE (17:30)
[2021-02-09 18:13] LABS: HEMATOCRIT. 42.9 % (36.0-48.0); HEMOGLOBIN. 13.8 g/dL (12.0-16.0); MEAN CORPUSCULAR HEMOGLOBIN 26.5 pg (28.0-32.0); MEAN CORPUSCULAR VOLUME 82.6 fL (81.0-99.0); MEAN PLATELET VOLUME 8.9 fl (7.4-10.4); PLATELET 160 x1000/uL (130-400); RED BLOOD CELL COUNT 5.19 mill/uL (4.2-5.4); RED CELL DISTRIBUTION WIDTH 15.2 % (11.6-14.6)
[2021-02-09 18:18] LABS: CHLORIDE 104 mEq/L (98-107)
[2021-02-09 18:35] LABS: PLATELET ESTIMATE NORMAL
[2021-02-09] MEDS ORDERED: ASPIRIN 325MG TABLET PO ONE (18:45)
[2021-02-09] MEDS ORDERED: POTASSIUM CHLORIDE 20MEQ TABLET SR PO SCH (18:45)
[2021-02-09] MEDS ORDERED: HYDROCODONE/ACETAMINOPHEN 5/325MG TABLET PO PRN (22:45)
[2021-02-09] MEDS ORDERED: ONDANSETRON HCL 4MG/2ML INJ IV PRN (22:45)
[2021-02-09] MEDS ORDERED: MAGNESIUM/ALUMINUM HYDROXIDE/SIMETHICONE 30ML UDC PO PRN (22:45)
[2021-02-09] MEDS ORDERED: CLONIDINE 0.1MG TABLET PO PRN (22:45)
[2021-02-09] MEDS ORDERED: GUAIFENESIN 200MG/10ML SUGAR FREE UDC PO PRN (22:45)
[2021-02-09] MEDS ORDERED: HYDRALAZINE 20MG/ML VIAL IV PRN (22:45)
[2021-02-09] MEDS: BUDESONIDE 0.5MG/2ML NEB HHN SCH (23:23)
[2021-02-10 02:02] LABS: CHLORIDE 103 mEq/L (98-107)
[2021-02-10] MEDS ORDERED: DEXTROSE 50% WATER 50ML SYRINGE IV PRN (03:15)
[2021-02-10] MEDS ORDERED: INSULIN LISPRO 100 UNITS/ML SUBCUT NR (03:15)
[2021-02-10] MEDS: INSULIN LISPRO (HIGH DOSE) 100 UNITS/ML SUBCUT SCH ×5 (03:30→21:30)
[2021-02-10 04:09] LABS: CLARITY URINE CLEAR (CLEAR); COLOR URINE YELLOW (YELLOW); KETONES URINE TRACE (NEGATIVE); LEUKOCYTE ESTERASE URINE NEGATIVE (NEGATIVE); NITRITE URINE NEGATIVE (NEGATIVE); OCCULT BLOOD URINE NEGATIVE (NEGATIVE); PH URINE 5.5 (4.5-8.0); PROTEIN URINE NEGATIVE (NEGATIVE); SPECIFIC GRAVITY URINE 1.029 (1.005-1.030); UROBILINOGEN URINE 0.2 E.U./dL (0.2-1.0)
[2021-02-10 04:19] LABS: *AMPHETAMINES SCREEN URINE NEGATIVE (NEGATIVE)
[2021-02-10 04:20] LABS: *BARBITURATES SCREEN URINE NEGATIVE (NEGATIVE); *BENZODIAZEPINES SCREEN URINE NEGATIVE (NEGATIVE); *COCAINE SCREEN URINE NEGATIVE (NEGATIVE); METHADONE URINE SCREEN NEGATIVE (NEGATIVE); OPIATES URINE SCREEN NEGATIVE (NEGATIVE); PHENCYCLIDINE URINE SCREEN NEGATIVE (NEGATIVE)
[2021-02-10 04:21] LABS: CANNABINOID URINE SCREEN NEGATIVE (NEGATIVE)
[2021-02-10] MEDS: BLOOD SUGAR DIAGNOSTIC STRIP TEST SCH ×5 (04:43→21:28)
[2021-02-10 05:13] LABS: HEMATOCRIT. 39.5 % (36.0-48.0); HEMOGLOBIN. 12.6 g/dL (12.0-16.0); MEAN CORPUSCULAR HEMOGLOBIN 26.7 pg (28.0-32.0); MEAN CORPUSCULAR VOLUME 83.9 fL (81.0-99.0); MEAN PLATELET VOLUME 9.8 fl (7.4-10.4); PLATELET 145 x1000/uL (130-400); RED BLOOD CELL COUNT 4.71 mill/uL (4.2-5.4)
[2021-02-10 05:30] LABS: LDL CHOLESTEROL 86 mg/dL (5-100)
[2021-02-10 05:31] LABS: BETA HYDROXYBUTYRATE 0.4 mMol/L (0.0-0.3); CREATINE KINASE 259 IU/L (26-192); HDL CHOLESTEROL 62 mg/dL (40-59)
[2021-02-10 05:32] LABS: CREATINE KINASE MB FRACTION < 1.0 ng/mL (0.5-3.6)
[2021-02-10 06:50] LABS: PLATELET ESTIMATE NORMAL
[2021-02-10] MEDS ORDERED: METF-414 MT (07:04)
[2021-02-10] MEDS ORDERED: ALBU6.7H9 INH (07:04)
[2021-02-10] MEDS: ACETAMINOPHEN 325MG TABLET PO PRN (07:10)
[2021-02-10 07:43] VITALS: BP 161/86
[2021-02-10 08:00] VITALS: BP 116/82
[2021-02-10] MEDS ORDERED: INSULIN LISPRO 100 UNITS/ML SUBCUT SCH ×2 (08:00→10:15)
[2021-02-10] MEDS: FUROSEMIDE 40MG/4ML VIAL IV SCH ×2 (08:55→17:21)
[2021-02-10] MEDS ORDERED: ENOXAPARIN 40MG/0.4ML SYR SUBCUT SCH (09:00)
[2021-02-10] MEDS: BUDESONIDE 0.5MG/2ML NEB HHN SCH ×2 (09:25→20:28)
[2021-02-10] MEDS: IPRATROPIUM/ALBUTEROL 0.5-3(2.5)MG/3ML NEB NEB PRN (09:25)
[2021-02-10 12:00] VITALS: BP 156/85
[2021-02-10] MEDS ORDERED: INSULIN GLARGINE UD 100 UNITS/ML SYR SUBCUT SCH ×2 (12:00→22:00)
[2021-02-10] MEDS ORDERED: POTASSIUM CHLORIDE 20MEQ/PACKET PO NR ×2 (14:15→20:00)
[2021-02-10] MEDS ORDERED: NALOXONE HCL 0.4MG/ML VIAL IV PRN (14:15)
[2021-02-10] MEDS: NICOTINE 21MG PATCH TD SCH (15:45)
[2021-02-10 16:00] VITALS: BP 166/93
[2021-02-10] MEDS: LOSARTAN POTASSIUM 100 MG TABLET PO SCH (16:13)
[2021-02-10 16:35] LABS: CREATINE KINASE 343 IU/L (26-192); CREATINE KINASE MB FRACTION 2.4 ng/mL (0.5-3.6)
[2021-02-10] MEDS: ATENOLOL 25MG TABLET PO SCH (17:53)
[2021-02-10 20:00] VITALS: BP 147/87
[2021-02-10] MEDS: INSULIN GLARGINE UD 100 UNITS/ML SYR SUBCUT SCH (21:30)
[2021-02-11] VITALS: BP 151/84
[2021-02-11 04:00] VITALS: BP 136/79
[2021-02-11] MEDS: IPRATROPIUM/ALBUTEROL 0.5-3(2.5)MG/3ML NEB NEB PRN ×2 (05:32→07:33)
[2021-02-11] MEDS: BLOOD SUGAR DIAGNOSTIC STRIP TEST SCH ×2 (06:13→11:43)
[2021-02-11] MEDS: INSULIN LISPRO (HIGH DOSE) 100 UNITS/ML SUBCUT SCH ×2 (06:15→11:43)
[2021-02-11] MEDS: BUDESONIDE 0.5MG/2ML NEB HHN SCH (07:33)
[2021-02-11 08:00] VITALS: BP 141/82
[2021-02-11] MEDS: FUROSEMIDE 40MG/4ML VIAL IV SCH (09:00)
[2021-02-11] MEDS: ATENOLOL 25MG TABLET PO SCH (09:00)
[2021-02-11] MEDS ORDERED: ENOXAPARIN 30MG/0.3ML SYR SUBCUT SCH (09:00)
[2021-02-11] MEDS: LOSARTAN POTASSIUM 100 MG TABLET PO SCH (09:01)
[2021-02-11] MEDS: NICOTINE 21MG PATCH TD SCH (09:01)
[2021-02-11] MEDS: INSULIN GLARGINE UD 100 UNITS/ML SYR SUBCUT SCH (10:42)
[2021-02-11 10:43] LABS: BASOPHILS % 0.9 % (0.0-2.0); HEMATOCRIT. 39.8 % (36.0-48.0); HEMOGLOBIN. 13.1 g/dL (12.0-16.0); LYMPHOCYTES % 14.9 % (20.0-50.0); MEAN CORPUSCULAR HEMOGLOBIN 27.1 pg (28.0-32.0); MEAN CORPUSCULAR VOLUME 82.5 fL (81.0-99.0); MEAN PLATELET VOLUME 9.5 fl (7.4-10.4); MONOCYTES % 5.3 % (2.0-8.0); NEUTROPHILS % 75.9 % (40.0-76.0); PLATELET 160 x1000/uL (130-400); RED BLOOD CELL COUNT 4.82 mill/uL (4.2-5.4); RED CELL DISTRIBUTION WIDTH 14.8 % (11.6-14.6)
[2021-02-11] MEDS: ACETAMINOPHEN 325MG TABLET PO PRN (11:39)
[2021-02-11 12:00] VITALS: BP 137/83
[2021-02-11] MEDS ORDERED: POTASSIUM CHLORIDE 20MEQ TABLET SR PO NR (13:00)
[2021-02-11] MEDS ORDERED: INSULIN GLARGINE UD 100 UNITS/ML SYR SUBCUT NR (14:00)
[2021-02-11] MEDS ORDERED: INSULIN GLARGINE UD 100 UNITS/ML SYR SUBCUT SCH (22:00)
[2021-02-12] MEDS ORDERED: FUROSEMIDE 40MG/4ML VIAL IV SCH (09:00)
== END 2021-02-11 13:25 | disposition left against medical advice (07) | DRG 141 ==
LOC: ER 15:26 → 7EST 18:42 → ENRESERV 02-10 04:41
PROVIDERS: ADMIT Internal Medicine; ATTEND Internal Medicine
PROC: 5A09357 Assistance with Respiratory Ventilation, Less than 24 Consecutive Hours, Continuous Positive Airway Pressure (ICD-10-PCS; principal; 2021-02-09)
DX: J45.901 Unspecified asthma with (acute) exacerbation (principal); J96.01 Acute respiratory failure with hypoxia; I50.43 Acute on chronic combined systolic (congestive) and diastolic (congestive) heart failure; I11.0 Hypertensive heart disease with heart failure; I42.9 Cardiomyopathy, unspecified; F17.210 Nicotine dependence, cigarettes, uncomplicated; E66.9 Obesity, unspecified; E78.5 Hyperlipidemia, unspecified; E87.6 Hypokalemia; Z53.29 Procedure and treatment not carried out because of patient's decision for other reasons; E11.9 Type 2 diabetes mellitus without complications; I34.0 Nonrheumatic mitral (valve) insufficiency; I35.1 Nonrheumatic aortic (valve) insufficiency; I36.1 Nonrheumatic tricuspid (valve) insufficiency; Z79.899 Other long term (current) drug therapy; Z91.14 Patient's other noncompliance with medication regimen; Z88.0 Allergy status to penicillin; Z79.84 Long term (current) use of oral hypoglycemic drugs; Z79.1 Long term (current) use of non-steroidal anti-inflammatories (NSAID); Z79.82 Long term (current) use of aspirin; Z68.41 Body mass index [BMI] 40.0-44.9, adult; Z79.4 Long term (current) use of insulin
CPT/HCPCS: 36415; 71045; 80048; 80053; 80061; 80305; 81003; 82010; 82550; 82553; 82962; 83036; 83735; 83880; 84443; 84481; 84484; 85025; 93005; 93306; 93970; 99291; J1650; J1815; J1940; J2930; J7626

== ENCOUNTER 2021-07-23 06:20 | Emergency (ER) | payer OTHER ==
[~2021-07-23] VITALS: Ht 167.6 cm; Wt 113.0 kg
[~2021-07-23 06:20] MED LIST changes: +ALBU6.7H9 INH; +METF-414 MT
[2021-07-23] MEDS ORDERED: ALBUTEROL (0.083%) 2.5MG/3ML NEB HHN STA (06:31)
[2021-07-23] MEDS ORDERED: METHYLPREDNISOLONE SOD SUCC 125 MG/2 ML VIAL IV STA (06:31)
[2021-07-23] MEDS ORDERED: IPRATROPIUM BROMIDE (0.02%) 0.5MG/2.5ML NEB HHN STA (06:31)
[2021-07-23 07:33] LABS: BASOPHILS % 1.2 % (0.0-2.0); EOSINOPHILS % 1.6 % (0.0-5.0); HEMATOCRIT. 41.9 % (36.0-48.0); HEMOGLOBIN. 13.8 g/dL (12.0-16.0); LYMPHOCYTES % 12.8 % (20.0-50.0); MEAN CORPUSCULAR HEMOGLOBIN 27.1 pg (28.0-32.0); MEAN CORPUSCULAR VOLUME 82.5 fL (81.0-99.0); MEAN PLATELET VOLUME 9.5 fl (7.4-10.4); MONOCYTES % 5.2 % (2.0-8.0); NEUTROPHILS % 79.2 % (40.0-76.0); PLATELET 166 x1000/uL (130-400); RED BLOOD CELL COUNT 5.08 mill/uL (4.2-5.4); RED CELL DISTRIBUTION WIDTH 16.3 % (11.6-14.6)
[2021-07-23 07:38] LABS: CHLORIDE 108 mEq/L (98-107)
[2021-07-23] MEDS ORDERED: FUROSEMIDE 40MG/4ML VIAL IVP NR (08:45)
[2021-07-23] MEDS ORDERED: ASPIRIN 325MG EC TABLET PO NR (08:45)
[2021-07-23 12:23] VITALS: BP 164/90
== END 2021-07-23 12:45 | disposition short-term general hospital (02) ==
LOC: ER 06:20
DX: I11.0 Hypertensive heart disease with heart failure (principal); I50.9 Heart failure, unspecified; J45.901 Unspecified asthma with (acute) exacerbation; Z79.899 Other long term (current) drug therapy; Z20.822 Contact with and (suspected) exposure to COVID-19
CPT/HCPCS: 36415; 71045; 80053; 82962; 83880; 84484; 85025; 87426; 93005; 94640; 96374; 96375; 99291; C1893; C9803; J1940; J2930; Z7610

== ENCOUNTER 2021-08-03 19:35 | Inpatient (IN) | payer OTHER ==
[~2021-08-03] VITALS: Ht 152.4 cm; Wt 110.4 kg
[~2021-08-03 19:35] MED LIST changes: +CLIN-194 MT; -CLIN300C12 MT; +MONT-39 PO; -MONT10TA32 PO
[2021-08-03] MEDS ORDERED: NITROGLYCERIN OINT 1GM/INCH UDPKT TD ONE (20:15)
[2021-08-03] MEDS ORDERED: ASPIRIN 81MG TABLET PO ONE (20:15)
[2021-08-03] MEDS ORDERED: FUROSEMIDE 40MG/4ML VIAL IV ONE (20:15)
[2021-08-03 20:17] LABS: BASOPHILS % 1.2 % (0.0-2.0); EOSINOPHILS % 3.4 % (0.0-5.0); HEMATOCRIT. 39.8 % (36.0-48.0); LYMPHOCYTES % 16.6 % (20.0-50.0); MEAN CORPUSCULAR HEMOGLOBIN 27.6 pg (28.0-32.0); MEAN CORPUSCULAR VOLUME 84.2 fL (81.0-99.0); MEAN PLATELET VOLUME 9.4 fl (7.4-10.4); MONOCYTES % 6.7 % (2.0-8.0); NEUTROPHILS % 72.1 % (40.0-76.0); PLATELET 198 x1000/uL (130-400); RED BLOOD CELL COUNT 4.72 mill/uL (4.2-5.4)
[2021-08-03 20:28] LABS: CHLORIDE 107 mEq/L (98-107)
[2021-08-03] MEDS ORDERED: POTASSIUM CHLORIDE 20MEQ TABLET SR PO ONE (21:00)
[2021-08-03] MEDS ORDERED: INSULIN LISPRO 100 UNITS/ML SUBCUT SCH (23:45)
[2021-08-03] MEDS ORDERED: DEXTROSE 50% WATER 50ML SYRINGE IV PRN (23:45)
[2021-08-04] MEDS ORDERED: INSULIN LISPRO (MEDIUM DOSE) 100 UNITS/ML SUBCUT SCH
[2021-08-04 03:00] VITALS: BP 168/96
[2021-08-04 03:15] VITALS: BP 168/96
[2021-08-04] MEDS ORDERED: ACETAMINOPHEN MT PRN (03:30)
[2021-08-04] MEDS ORDERED: LORAZEPAM 1MG TABLET PO PRN (03:45)
[2021-08-04] MEDS ORDERED: IPRATROPIUM/ALBUTEROL 0.5-3(2.5)MG/3ML NEB HHN PRN (03:45)
[2021-08-04] MEDS ORDERED: ACETAMINOPHEN 500MG TABLET PO PRN (04:00)
[2021-08-04] MEDS ORDERED: ALBUTEROL 6.7GM HFA INHALER INH SCH (04:00)
[2021-08-04] MEDS ORDERED: GUAIFENESIN/CODEINE 100-10MG/5ML UDC PO PRN (06:00)
[2021-08-04 06:32] LABS: HEMATOCRIT 37.6 % (36.0-48.0); HEMOGLOBIN 12.2 g/dL (12.0-16.0); MEAN CORPUSCULAR HEMOGLOBIN 27.2 pg (28.0-32.0); PLATELET 175 x1000/uL (130-400); RED BLOOD CELL COUNT 4.48 mill/uL (4.2-5.4); RED CELL DISTRIBUTION WIDTH 16.4 % (11.6-14.6)
[2021-08-04] MEDS: BLOOD SUGAR DIAGNOSTIC STRIP TEST SCH ×2 (06:49→12:06)
[2021-08-04] MEDS: INSULIN LISPRO 100 UNITS/ML SUBCUT SCH ×2 (06:54→13:28)
[2021-08-04 06:55] LABS: CHLORIDE 108 mEq/L (98-107)
[2021-08-04 07:02] LABS: HDL CHOLESTEROL 47 mg/dL (40-59); LDL CHOLESTEROL 48 mg/dL (5-100)
[2021-08-04] MEDS: GABAPENTIN 100MG CAPSULE PO SCH ×2 (08:27→13:24)
[2021-08-04 08:30] VITALS: BP 158/85
[2021-08-04] MEDS ORDERED: BACLOFEN 10MG TABLET PO SCH (09:00)
[2021-08-04] MEDS ORDERED: ENOXAPARIN 40MG/0.4ML SYR SUBCUT SCH (09:00)
[2021-08-04] MEDS ORDERED: MONTELUKAST SODIUM 10MG TABLET PO SCH (09:00)
[2021-08-04] MEDS ORDERED: ASPIRIN 81MG TABLET PO SCH (09:00)
[2021-08-04] MEDS ORDERED: METOLAZONE 2.5MG TABLET PO NR (09:00)
[2021-08-04] MEDS ORDERED: LISINOPRIL 40MG TABLET PO SCH (09:00)
[2021-08-04] MEDS ORDERED: AMLODIPINE 10MG TABLET PO SCH (09:00)
[2021-08-04] MEDS ORDERED: ASPIRIN 81 MG PO SCH (09:00)
[2021-08-04] MEDS ORDERED: ENOXAPARIN 30MG/0.3ML SYR SUBCUT SCH (09:00)
[2021-08-04] MEDS ORDERED: FUROSEMIDE 40MG/4ML VIAL IVP SCH ×2 (09:00→09:15)
[2021-08-04] MEDS ORDERED: POTASSIUM CHLORIDE 10MEQ TABLET SR PO SCH (09:00)
[2021-08-04] MEDS ORDERED: FUROSEMIDE 100MG/10ML VIAL IVP SCH ×2 (09:00→21:00)
[2021-08-04] MEDS ORDERED: CARVEDILOL 3.125 MG TABLET PO SCH (09:00)
[2021-08-04] MEDS ORDERED: MEDICATION NOT ON FORMULARY EA (Potassium Chloride 10 MEQ) PO SCH (09:00)
[2021-08-04] MEDS ORDERED: GUAIFENESIN/CODEINE 200-20MG/10ML UDC PO PRN (09:30)
[2021-08-04] MEDS ORDERED: INSULIN GLARGINE 100 UNITS/ML SUBCUT SCH (10:00)
[2021-08-04 12:03] VITALS: BP 150/99
[2021-08-04] MEDS ORDERED: DIPHENHYDRAMINE 25MG CAPSULE PO SCH (17:00)
[2021-08-05] MEDS ORDERED: POTASSIUM CHLORIDE 20MEQ TABLET SR PO SCH (09:00)
== END 2021-08-04 15:35 | disposition home or self-care (01) | DRG 194 ==
LOC: ER 19:35 → MICUSO 21:25 → 6WST 08-04 02:27
PROVIDERS: ADMIT Internal Medicine; ATTEND Internal Medicine
DX: I11.0 Hypertensive heart disease with heart failure (principal); J96.01 Acute respiratory failure with hypoxia; E44.0 Moderate protein-calorie malnutrition; I50.43 Acute on chronic combined systolic (congestive) and diastolic (congestive) heart failure; I42.9 Cardiomyopathy, unspecified; I27.20 Pulmonary hypertension, unspecified; J44.9 Chronic obstructive pulmonary disease, unspecified; R77.8 Other specified abnormalities of plasma proteins; S80.821A Blister (nonthermal), right lower leg, initial encounter; E87.6 Hypokalemia; R60.0 Localized edema; Y90.9 Presence of alcohol in blood, level not specified; E66.01 Morbid (severe) obesity due to excess calories; X58.XXXA Exposure to other specified factors, initial encounter; E11.65 Type 2 diabetes mellitus with hyperglycemia; Z79.4 Long term (current) use of insulin; Z88.0 Allergy status to penicillin; Z72.89 Other problems related to lifestyle; Y92.89 Other specified places as the place of occurrence of the external cause; Y99.8 Other external cause status; Y93.89 Activity, other specified; Z87.891 Personal history of nicotine dependence; Z82.49 Family history of ischemic heart disease and other diseases of the circulatory system; Z79.82 Long term (current) use of aspirin; Z79.899 Other long term (current) drug therapy; Z68.42 Body mass index [BMI] 45.0-49.9, adult; Z28.310 Unvaccinated for COVID-19; Z71.6 Tobacco abuse counseling
CPT/HCPCS: 36415; 71045; 80048; 80053; 80061; 82962; 83036; 83880; 84484; 85025; 85027; 93005; 93306; 99291; J1650; J1815; J1940

== ENCOUNTER 2021-10-15 07:10 | Emergency (ER) | payer OTHER ==
[~2021-10-15] VITALS: Ht 170.2 cm; Wt 104.4 kg
[~2021-10-15 07:10] MED LIST changes: -AMLO10TA80 MT; -ATEN-42 PO; -FURO-152 MT
[2021-10-15 07:54] LABS: BASOPHILS % 1.2 % (0.0-2.0); EOSINOPHILS % 3.9 % (0.0-5.0); HEMATOCRIT. 42.3 % (36.0-48.0); HEMOGLOBIN. 13.3 g/dL (12.0-16.0); LYMPHOCYTES % 22.8 % (20.0-50.0); MEAN CORPUSCULAR HEMOGLOBIN 25.7 pg (28.0-32.0); MEAN CORPUSCULAR VOLUME 81.9 fL (81.0-99.0); MEAN PLATELET VOLUME 9.1 fl (7.4-10.4); MONOCYTES % 6.7 % (2.0-8.0); NEUTROPHILS % 65.4 % (40.0-76.0); PLATELET 222 x1000/uL (130-400); RED BLOOD CELL COUNT 5.17 mill/uL (4.2-5.4); RED CELL DISTRIBUTION WIDTH 17.1 % (11.6-14.6)
[2021-10-15 08:03] LABS: CHLORIDE 102 mEq/L (98-107)
[2021-10-15 08:09] LABS: ETHANOL BLOOD < 10 mg/dL
[2021-10-15 08:50] LABS: CLARITY URINE CLEAR (CLEAR); COLOR URINE YELLOW (YELLOW); KETONES URINE NEGATIVE (NEGATIVE); LEUKOCYTE ESTERASE URINE NEGATIVE (NEGATIVE); NITRITE URINE NEGATIVE (NEGATIVE); OCCULT BLOOD URINE TRACE (NEGATIVE); PH URINE 6.5 (4.5-8.0); PROTEIN URINE 2+ (NEGATIVE); SPECIFIC GRAVITY URINE 1.018 (1.005-1.030); UROBILINOGEN URINE 0.2 E.U./dL (0.2-1.0)
[2021-10-15] MEDS ORDERED: FUROSEMIDE 40MG/4ML VIAL IVP ONE (09:15)
[2021-10-15] MEDS ORDERED: ENALAPRIL 2.5MG/2ML VIAL 2ML IV ONE (09:15)
[2021-10-15 09:19] LABS: *AMPHETAMINES SCREEN URINE NEGATIVE (NEGATIVE); *BARBITURATES SCREEN URINE NEGATIVE (NEGATIVE); *BENZODIAZEPINES SCREEN URINE NEGATIVE (NEGATIVE); *COCAINE SCREEN URINE NEGATIVE (NEGATIVE); CANNABINOID URINE SCREEN NEGATIVE (NEGATIVE); METHADONE URINE SCREEN NEGATIVE (NEGATIVE); OPIATES URINE SCREEN PRESUMTIVE POSITIVE (NEGATIVE); PHENCYCLIDINE URINE SCREEN NEGATIVE (NEGATIVE)
[2021-10-15] MEDS ORDERED: IOHEXOL-300 50 ML BOTTLE IV ONE (09:27)
[2021-10-15] MEDS ORDERED: ENALAPRIL 1.25MG/ML VIAL 1ML IV NR (09:45)
[2021-10-15 09:46] LABS: BG CARBOXYHEMOGLOBIN 1.3 % (0.5-1.5); BG FRACTION INSPIRED OXYGEN 100; BG HCO3 ACT 28.8 mmol/L (22.0-26.0); BG METHEMOGLOBIN 0.4 % (0.0-1.5); BG OXYHEMOGLOBIN 97.3 % (94.0-97.0); BG PCO2 48.6 mmHg (35.0-45.0); BG PO2 162.4 mmHg (75.0-100.0); BG SAMPLE SITE RIGHT RADIAL; BG TOTAL HEMOGLOBIN 13.2 g/dL (12.0-18.0); BG VENT MODE MASK - BIPAP
[2021-10-15 10:39] VITALS: BP 160/88
[2021-10-15] MEDS ORDERED: LEVOFLOXACIN 500MG PREMIX 100 ML IV SCH (10:45)
[2021-10-15] MEDS ORDERED: LEVOFLOXACIN 750MG PREMIX 150 ML IV SCH (11:00)
== END 2021-10-15 10:35 | disposition short-term general hospital (02) ==
LOC: ER 07:15 → EDBEDREQTM 09:15 → EDBEDREQ 09:15 → ER 10:35 → CANBEDREQ 10:54
DX: I11.0 Hypertensive heart disease with heart failure (principal); I50.9 Heart failure, unspecified; I63.9 Cerebral infarction, unspecified; J45.909 Unspecified asthma, uncomplicated; Z20.822 Contact with and (suspected) exposure to COVID-19
CPT/HCPCS: 36415; 36600; 70450; 70496; 70498; 71045; 80053; 80305; 80320; 81003; 82375; 82805; 82962; 84484; 85025; 87426; 93005; 94660; 96374; 96375; 99291; C9803; J1940; J3490; Q9967; A4315; G0480